=== PATIENT | female | born 1960 | race Caucasian/White ===

== ENCOUNTER 2022-09-27 13:10 | Emergency (ER) | payer OTHER, SELFPAY ==
[2022-09-27 13:11] VITALS: BP 129/91; PULSE 136; RESP 18; TEMP 36.4; O2SAT 95
--- NOTE | 2022-09-27 14:15 | EKG12_ITS ---
Test Reason : Blood Pressure : / mmHG Vent. Rate : 120 BPM Atrial Rate : 120 BPM P-R Int : 170 ms QRS Dur : 082 ms QT Int : 306 ms P-R-T Axes : 043 068 024 degrees QTc Int : 432 ms Sinus tachycardia Otherwise normal ECG Confirmed by TAHIR GILLILAND, LEE ([id number]), managing editor ASHLEY PULLIAM ([id number]) on 09/28/2022 9:24:29 AM Referred By: DALLAS Confirmed By:LEE HARO MD
[2022-09-27 14:58] LABS: Absolute Lymphocyte Count 0.84 X10^3/uL (0.83-4.51); Basophil# 0.01 X10^3/uL; Basophil% 0.3 % (0-1); Eosinophil# 0.02 X10^3/uL; Eosinophils% 0.6 % (0-5); Hematocrit 34.1 % (37-47); Hemoglobin 11.4 g/dL (12.0-15.0); Lymphocyte # 0.84 X10^3/ul (0.83-4.51); Lymphocyte % 26.8 % (19-41); Mean Corp Hgb Conc 33.4 g/dL (32-36); Mean Corpuscular Hgb 30.1 pg (27.0-32.0); Mean Platelet Vol. 9.3 fl (6.2-12.0); Monocyte# 0.24 X10^3/uL; Monocyte% 7.7 % (0-10); NRBC Flagged by Analyzer 0 % (0-5); Neutrophil # 1.99 X10^3/uL (2.7-7.7); Neutrophil % 63.6 % (47-70); POSITIVE MORPHOLOGY YES; Platelet Count 153 K/mm3 (150-450); RBC Distribution Width CV 17.2 % (11.6-14.6); Red Blood Count 3.79 M/mm3 (4.2-5.4); White Blood Count 3.1 K/mm3 (4.4-11.0)
[2022-09-27 14:59] LABS: Differential Indicated SCAN CRITERIA MET
[2022-09-27 15:03] LABS: D-Dimer Quantitative (DVT/PE) 0.85 FEU/ug/m (0.27-0.49)
[2022-09-27 15:07] LABS: Anion Gap 9 (5-15); BUN 11 mg/dL (7-18); Calcium,Total 9.6 mg/dL (8.5-10.1); Chloride 107 mmol/L (98-107); Creatinine, Serum 0.78 mg/dL (0.55-1.02); EST Glomerular Filtration Rate 79 mL/min (>60); Est Glom Filt Rate - Afr Amer 96 mL/min (>60); Glucose 117 mg/dL (74-106); Sodium Level 140 mmol/L (136-145); Troponin-I HS (w/2H Reflex) 5 pg/mL (3.0-54.0)
--- NOTE | 2022-09-27 15:08 | EX.ED.DYSGE1 ---
HPI History of Present Illness Chief Complaint: Palpitations Informant: patient and family Narrative Narrative: Sent to emergency department to rule out PE. Patient diagnosed breast cancer this past June currently going through chemo weekly followed by Dr. Joe. There is plan surgical intervention after 6 months of chemo, she followed up with surgery up at [facility] today reported heart rate was 140s. She states her smart watch did report that she was exercising more today when she was not. She does not feel palpitations. She does not feel lightheaded symptoms. She does not feel dyspnea. Patient denies recent vomiting or diarrhea she is tolerating oral fluids. PFSH PFSH Home Medications No Known/Unobtainable [No Known Home Medications] 04/26/16 [History Last Taken Unknown] Allergy/AdvReac Type Severity Reaction Status Date / Time No Known Allergies Allergy Verified 09/27/22 13:11 Social History Smoking Status: Never smoker ROS ROS ED Constitutional Constitutional ED: Denies chills, fever(s) or sweats Eyes Eyes: Denies change in vision ENT ENT ED: Denies dysphagia or sore throat Cardiovascular Cardiovascular: Denies chest pain, leg edema, palpitations or racing heartbeat Respiratory/Chest Respiratory/Chest: Denies cough, dyspnea or dyspnea on exertion Gastrointestinal Gastrointestinal: Denies abdominal pain, diarrhea, nausea or vomiting Genitourinary Genitourinary ED: Denies dysuria, hematuria or urinary frequency Musculoskeletal Musculoskeletal: Denies back pain, extremity pain or neck pain Integumentary Denies rash or wounds Neurologic Neurologic: Denies headache(s), paresthesias or weakness EXAM Physical Exam Const Vital Signs: 09/27/22 13:11 09/27/22 15:38 Temperature 97.6 F L Temperature Source Temporal Pulse Rate 136 H Respiratory Rate 18 Respiratory Effort Normal Blood Pressure 129/91 H Blood Pressure Mean 103 Pulse Ox 95 Oxygen Delivery Method Room Air Positive well nourished and well developed General Appearance ED: well developed and NAD HEENT Reports moist mucous membranes normocephalic and atraumatic Eyes PERRL, EOMs intact bilaterally and conjunctivae normal General Eye ED: Yes normal appearance of both eyes Neck no lymphadenopathy and supple General: Negative for tenderness Chest Wall Chest Narrative: Right upper chest Mediport. Chest: Negative for tenderness Resp normal respiratory effort and normal air movement Effort and Inspection: symmetric chest movement; Negative for respiratory distress Cardio regular rhythm and no murmurs Rate: tachycardic Peripheral Pulses: pulses 2+ throughout GI normal to inspection, nondistended, normoactive bowel sounds and non-tender Palpation: Negative for guarding or rebound tenderness present Back/Spine no CVA tenderness and no thoracic nor lumbar tenderness Extremity normal to inspection General Extremety ED: Negative for edema or tenderness General Extremity: Negative for edema Neuro oriented x3 and no sensory deficits noted Sensorium / Orientation: awake and alert Skin no rashes or lesions noted and no wounds MDM MDM MDM Narrative Medical decision making narrative: Interventions / MDM: Differential diagnosis: Cardiac dysrhythmia, tachycardia, pulmonary embolism Diagnosis considered but do not suspect: N/A My EKG interpretation: Sinus rate of 120, no ST or T wave changes. No S1Q3T3. Imaging independently reviewed and interpreted by myself: CTA chest negative for any PE interpreted by radiology External documents reviewed: N/A Test considered but not ordered:N/A ED course: Patient asymptomatic with tachycardia. Sinus tachycardia on the monitor. Labs initiated per protocol elevated dimer 0.85. Troponin negative. BUN [address] chest negative for PE. She was given IV fluids, Re-evaluation: stable heart rate improved to the 80s sinus rhythm on the monitor with fluids. She will increase oral fluids at home for hydration. She will follow-up with her doctors. All questions were answered. Disposition discussed with patient/family/significant other: Patient and family Case discussed with consulting clinician: N/A Lab Data Attestation: I reviewed the patient's lab results. Labs: Laboratory Results - last 24 hr 09/27/22 09/27/22 09/27/22 14:45 14:45 14:45 WBC 3.1 L RBC 3.79 L Hgb 11.4 L Hct 34.1 L MCV 90.0 MCH 30.1 MCHC 33.4 RDW Std Deviation 55.0 H RDW Coeff of Jonah 17.2 H Plt Count 153 MPV 9.3 Immature Gran % (Auto) 1.000 H Neut % (Auto) 63.6 Lymph % (Auto) 26.8 [place] % (Auto) 7.7 Eos % (Auto) 0.6 Baso % (Auto) 0.3 Absolute Neuts (auto) 2.0 Absolute Lymphs (auto) 0.84 Nucleated RBC % 0 Differential Comment SCANNED D-Dimer Quant (PE/DVT) 0.85 H* Sodium 140 Potassium 4.0 Chloride 107 Carbon Dioxide 24.0 Anion Gap 9 BUN 11 Creatinine 0.78 Est GFR (MDRD) Af Amer 96 Est GFR (MDRD) Non-Af 79 BUN/Creatinine Ratio 14.0 Glucose 117 H Calcium 9.6 Troponin I High Sens 5 Radiography Diagnostic Testing: Clinical Impression(s) from Imaging Studies Chest CTA 09/27/22 15:32 IMPRESSION: Normal CTA chest examination, without a demonstrated pulmonary embolism or arterial dissection. Electronically Signed: Tomás Robles MD at 15:54 EST , EKG Initial EKG: Attestation: I personally reviewed and interpreted this EKG as follows: Comments: Sinus rate of 120, no ST or T wave changes. No S1Q3T3. Discharge Plan Triage Chief Complaint: Palpitations ED Provider: Vasiliy Dee Dx/Rx/DC Orders Clinical Impression: Sinus tachycardia, Dehydration, History of breast cancer Instructions: Dehydration, Understanding Tachycardia Prescriptions: No Action No Known Home Medications Primary Care Provider: Sangeetha Marino Referrals: Sangeetha Marino MD [Primary Care Provider] - Activity Restrictions/Additional Instructions: CT chest negative for PE. Your heart rate improved with fluids. Continue oral fluids at home. Follow-up with your doctors. Disposition Disposition: Home, Self Care
[2022-09-27] MEDS: 0.9% Normal Saline 1,000 ML 1000 ML IV (15:28)
--- NOTE | 2022-09-27 15:32 | CT_ITS ---
STUDY: CTA CHEST REASON FOR EXAM: Female, 61 years old. Elevated dimer RADIATION DOSAGE (If Supplied By Facility): CTDIvol = ( 7.34 ) mGy, DLP = ( 376.97 ) mGycm TECHNIQUE: The examination was performed with the intravenous administration of IV 100mL Isovue-370. Post-processing of the angiographic images was performed, with multiplanar reformation and 3D reconstruction. Individualized dose optimization techniques were used for this CT. COMPARISON: None. FINDINGS: Normal enhancement of the main pulmonary artery and right and left pulmonary arteries. Normal enhancement of the bilateral peripheral pulmonary arteries. There is no demonstrated pulmonary embolism. Normal thoracic aorta and visualized great vessels. There is no demonstrated aortic dissection. Normal heart and pericardium. Normal mediastinum. Normal hilar regions. Normal visualized trachea and bronchi. The lungs are well expanded. Normal pulmonary parenchyma. Normal pleura. Normal chest wall structures. There are degenerative changes of thoracic spine. Normal visualized upper abdomen. CT/CTA Chest W/WO Contrast IMPRESSION: Normal CTA chest examination, without a demonstrated pulmonary embolism or arterial dissection. Electronically Signed: Tomás Robles MD at 15:54 EST ,
[2022-09-27 15:46] LABS: Differential Comment SCANNED
[2022-09-27 16:23] VITALS: PULSE 88; RESP 20; O2SAT 97
[2022-09-27 16:47] LABS: Reflex Troponin-HS? (from REC) Y
[2022-09-27 17:10] LABS: International Normalized Ratio 1.1; Partial Thromboplast Time 29.6 Seconds (24.1-36.2); Prothrombin Time (Protime)PT. 13.4 SECONDS (11.7-14.9)
== END 2022-09-27 17:03 | disposition home or self-care (01) ==
PROVIDERS: Emergency Provider Emergency Medicine; PCP Internal Medicine; Visit Provider Emergency Medicine
DX: R00.0 Tachycardia, unspecified (principal); C50.919 Malignant neoplasm of unspecified site of unspecified female breast; E86.0 Dehydration
CPT/HCPCS: 36591; 71275; 80048; 84484; 85025; 85379; 85610; 85730; 93005; 96360; 99285; J7030; Q9967; A4216

== ENCOUNTER 2022-09-30 10:26 | Emergency (ER) | payer OTHER, SELFPAY ==
[2022-09-30 10:27] VITALS: BP 86/67; PULSE 142; RESP 18; TEMP 38.1; O2SAT 96; BMI 29.4
--- NOTE | 2022-09-30 10:40 | EKG12_ITS ---
Test Reason : FEVER Blood Pressure : / mmHG Vent. Rate : 132 BPM Atrial Rate : 132 BPM P-R Int : 156 ms QRS Dur : 086 ms QT Int : 284 ms P-R-T Axes : 028 047 028 degrees QTc Int : 420 ms Sinus tachycardia Low voltage QRS (Limb Leads) Confirmed by ABRAHAM GILLILAND, RICHARD ([id number]), television news video editor ASHLEY PULLIAM ([id number]) on 10/04/2022 11:05:40 AM Referred By: Confirmed By:RICHARD ROSARIO MD
--- NOTE | 2022-09-30 10:45 | CT_ITS ---
STUDY: CT CHEST WITHOUT CONTRAST REASON FOR EXAM: Female, 62 years old. Cough sob fever chemotherapy br ca RADIATION DOSAGE (If Supplied By Facility): CTDIvol = ( 11.61 ) mGy, DLP = ( 394.39 ) mGycm TECHNIQUE: Transaxial imaging was performed without the administration of intravenous contrast material. Multiplanar coronal and sagittal images were reformatted. Individualized dose optimization techniques were used for this CT. COMPARISON: Comparison is made with prior study dated September 27, 2022. FINDINGS: CHEST A right-sided chel catheter seen with the tip in the superior vena cava. Small bilateral axillary lymph nodes. Surgical clips are seen in the left axillary region. The lungs are normal. There is no demonstrated pleural abnormality. Minimal thickening of the anterior pericardium. There are calcifications of the coronary arteries. Normal mediastinum. Normal hilar regions. Normal unenhanced pulmonary arteries. Normal aorta arch and descending thoracic aorta. Normal osseous structures. Small hiatal hernia. Borderline splenomegaly. CT/Chest without Contrast IMPRESSION: Mild anterior pericardial thickening. The lungs are clear. Electronically Signed: Tomás Robles MD at 11:31 EST ,
--- NOTE | 2022-09-30 10:46 | EDS_ITS ---
HPI History of Present Illness Chief Complaint: Fever Informant: patient and PCP (Dr. Joe, oncology) Onset/Context/Timing Onset: Today Narrative Narrative: Patient has triple negative breast cancer, she had her last chemotherapy yesterday, prior to that her ANC was 1200. Yesterday she developed a wet cough that has been nonproductive, mild dyspnea with exertion. She is not dyspneic at rest. She denies any chest discomfort or pleuritic thoracic pains. No leg pain or swelling or history of DVT or PE. She developed a fever today of 102.2. Given all of this and the fact that her neoadjuvant chemotherapy carries an uncommon side effect possibility of interstitial pneumonitis, she was sent here for further evaluation and for including cultures and CT imaging. [facility] Medical History Triple negative breast cancer Home Medications No Known/Unobtainable [No Known Home Medications] 04/26/16 [History Last Taken Unknown] Allergy/AdvReac Type Severity Reaction Status Date / Time No Known Allergies Allergy Verified 09/27/22 13:11 Social History Smoking Status: Never smoker ROS ROS ED Constitutional Constitutional ED: Reports chills, fever(s) and malaise Eyes Eyes: Denies change in vision or diplopia ENT ENT ED: Reports nasal congestion; Denies rhinorrhea or sore throat Cardiovascular Cardiovascular: Reports lightheadedness; Denies chest pain, palpitations or syncope Respiratory/Chest Respiratory/Chest: Reports cough and dyspnea on exertion; Denies sputum Gastrointestinal Gastrointestinal: Denies abdominal pain, diarrhea, nausea or vomiting Genitourinary Genitourinary ED: Denies dysuria or hematuria Musculoskeletal Musculoskeletal: Denies back pain or neck pain Integumentary Denies abscess or rash Neurologic Neurologic: Denies headache(s), paresthesias or weakness Psychiatric Psychiatric: Denies anxiety or suicidal thoughts EXAM Physical Exam Const Vital Signs: 09/30/22 10:27 09/30/22 10:59 09/30/22 11:54 Temperature 100.6 F H Temperature Source Temporal Pulse Rate 142 H 114 H Respiratory Rate 18 20 H Respiratory Effort Short of Breath Blood Pressure 86/67 L 104/50 L Blood Pressure Mean 73 68 Pulse Ox 96 94 Oxygen Delivery Method Room Air Room Air 09/30/22 12:00 09/30/22 13:43 09/30/22 13:43 Temperature 98.1 F 98.5 F 98.5 F Temperature Source Temporal Temporal Temporal Pulse Rate 114 H 116 H 116 H Respiratory Rate 20 H 20 H 20 H Respiratory Effort Blood Pressure 104/50 L 94/58 L 94/58 L Blood Pressure Mean 68 70 70 Pulse Ox 94 93 93 Oxygen Delivery Method Room Air Room Air Room Air 09/30/22 14:43 09/30/22 14:43 Temperature 98 F Temperature Source Temporal Pulse Rate 115 H 115 H Respiratory Rate 18 18 Respiratory Effort Blood Pressure 94/58 L 94/58 L Blood Pressure Mean 70 70 Pulse Ox 93 93 Oxygen Delivery Method Room Air Room Air Positive well nourished and well developed Constitutional Narrative: Well-appearing General Appearance ED: well developed and NAD HEENT Reports moist mucous membranes normocephalic and atraumatic Eyes PERRL and EOMs intact bilaterally Neck full ROM and supple Resp normal respiratory effort and clear to auscultation bilaterally Resp Narrative: Occasional wet sounding cough nonproductive. Conversive in full sentences and well-appearing. Cardio regular rate, regular rhythm and no murmurs Rate: tachycardic GI non-tender and non-distended Auscultation: normoactive bowel sounds Palpation: soft Back/Spine no CVA tenderness General Back: other FROM Extremity normal to inspection General Extremety ED: Negative for edema, pulses abnormal or tenderness General Extremity: Negative for edema or pulses abnormal Neuro oriented x3, CN's II-XII intact bilaterally and no sensory deficits noted Sensorium / Orientation: awake and alert Motor Exam: strength 5/5 throughout Skin no rashes or lesions noted and no wounds MDM MDM MDM Narrative Medical decision making narrative: Patient underwent septic work-up. She is leukopenic, like she was before, but she is not neutropenic. Her ANC is actually a little higher now, 2000. She is pancultured. We did a chest CT, given oncology's recommendation and the differential including interstitial pneumonitis and pneumonia. The CT is negative for any of that. The patient was given fluids we had her fever down with Tylenol, and she was feeling well. I discussed with Dr. Joe again, we did COVID and influenza swabs and they were negative he advised doing a respiratory panel as well. That is sent, will give her some more fluids in the meantime because her pressure was on the low side and she had some mild elevation of her creatinine, her pressure is better, and she is ready to go home. The respiratory panel was good to take another 1.5 hours, so we will review the results and if negative for any viruses, we will prescribe her broad-spectrum Levaquin to cover atypicals. This swab returned positive for metapneumovirus, known respiratory virus, otherwise negative. Given that, I do not think she needs to be put on antibiotics. Staff called the patient to discuss and I had them fax this result to her oncologist office. Lab Data Attestation: I reviewed the patient's lab results. Labs: Laboratory Results - last 24 hr 09/30/22 09/30/22 09/30/22 10:20 11:00 11:00 WBC 2.5 L RBC 2.97 L Hgb 8.9 L Hct 26.9 L MCV 90.6 MCH 30.0 MCHC 33.1 RDW Std Deviation 57.4 H RDW Coeff of Jonah 17.5 H Plt Count 103 L MPV 9.8 Immature Gran % (Auto) 0.800 Neut % (Auto) 82.6 H Lymph % (Auto) 7.3 L [place] % (Auto) 8.9 Eos % (Auto) 0.0 Baso % (Auto) 0.4 Absolute Neuts (auto) 2.0 Absolute Lymphs (auto) 0.18 L Nucleated RBC % 0 Differential Comment SCANNED Diff Path Review November foll PT 14.5 INR 1.2 APTT 34.2 Sodium Potassium Chloride Carbon Dioxide Anion Gap BUN Creatinine Estim Creat Clear Calc Est GFR (MDRD) Af Amer Est GFR (MDRD) Non-Af BUN/Creatinine Ratio Glucose Lactic Acid Calcium Total Bilirubin AST ALT Alkaline Phosphatase Total Protein Albumin Globulin Albumin/Globulin Ratio Urine Color Yellow Urine Clarity Clear Urine pH 5.0 Ur Specific [place] 1.015 Urine Protein 15 H Urine Glucose (UA) Normal Urine Ketones Negative Urine Occult Blood 150 H Urine Nitrite Negative Urine Bilirubin Negative Urine Urobilinogen Normal Ur Leukocyte Esterase 25 H Urine RBC 0-5 SEEN Urine WBC 0-5 SEEN Ur Squamous Epith Cells 0-5 SEEN Urine Bacteria RARE Urine Mucus 0 SEEN 09/30/22 09/30/22 11:00 11:00 WBC RBC Hgb Hct MCV MCH MCHC RDW Std Deviation RDW Coeff of Jonah Plt Count MPV Immature Gran % (Auto) Neut % (Auto) Lymph % (Auto) [place] % (Auto) Eos % (Auto) Baso % (Auto) Absolute Neuts (auto) Absolute Lymphs (auto) Nucleated RBC % Differential Comment Diff Path Review PT INR APTT Sodium 134 L Potassium 3.6 Chloride 102 Carbon Dioxide 24.0 Anion Gap 8 BUN 20 H Creatinine 1.14 H Estim Creat Clear Calc 43.62 Est GFR (MDRD) Af Amer 62 Est GFR (MDRD) Non-Af 51 L BUN/Creatinine Ratio 17.5 Glucose 140 H Lactic Acid 1.9 Calcium 8.2 L Total Bilirubin 1.40 H AST 22 ALT 21 Alkaline Phosphatase 56 Total Protein 6.4 Albumin 3.2 Globulin 3.2 Albumin/Globulin Ratio 1.0 Urine Color Urine Clarity Urine pH Ur Specific [place] Urine Protein Urine Glucose (UA) Urine Ketones Urine Occult Blood Urine Nitrite Urine Bilirubin Urine Urobilinogen Ur Leukocyte Esterase Urine RBC Urine WBC Ur Squamous Epith Cells Urine Bacteria Urine Mucus Radiography Diagnostic Testing: Clinical Impression(s) from Imaging Studies Chest CT 09/30/22 10:45 IMPRESSION: Mild anterior pericardial thickening. The lungs are clear. Electronically Signed: Tomás Robles MD at 11:31 EST , Rhythm Strip Rhythm Strip: Sinus Tach Rate: 125 Ectopy: None EKG Initial EKG: Attestation: I personally reviewed and interpreted this EKG as follows: Interpretation: No Acute Injury Pattern and Sinus Tachycardia Discharge Plan Triage Chief Complaint: Fever ED Provider: Fred Chung Dx/Rx/DC Orders Clinical Impression: Viral URI with cough, Pancytopenia, History of breast cancer, Acquired immunocompromised state Instructions: ED FUO Adult Prescriptions: No Action No Known Home Medications Primary Care Provider: Sangeetha Marino Referrals: Sangeetha Marino MD [Primary Care Provider] - Manuel Joe DO [Med Staff - Active Staff] - (call for follow up instructions) Activity Restrictions/Additional Instructions: Drink plenty fluids. Tylenol as needed for fevers. Feel free to return to the ER for any other acute issues. Disposition Disposition: Home, Self Care Discharge Date/Time: 09/30/22 16:01
[2022-09-30 10:54] LABS: Mucous, Urine 0 SEEN /hpf (<or=2+)
[2022-09-30 10:57] LABS: Color, Urine Yellow (Yellow); Glucose, Dipstick Normal (Normal); Ketone-Dipstick Negative (Negative); Leukocyte Esterase-Dipstick 25 /ul (Negative); Nitrite-Dipstick Negative (Negative); Occult Blood-Urine 150 /ul (Negative); Protein-Dipstick 15 mg/dl (Negative); Specific Gravity, Urine 1.015 (1.002-1.030); Urine Bilirubin Dipstick Negative (Negative); Urine Clarity Clear (Clear); Urine Urobilinogen Normal (Normal)
[2022-09-30] MEDS: 0.9% Normal Saline 1,000 ML 999 ML IV ×2 (10:58→13:49)
[2022-09-30] MEDS: Acetaminophen 500 MG Tablet 1000 MG PO (10:58)
[2022-09-30 11:06] LABS: Bacteria RARE /hpf (None Seen); Red Blood Cells-Urine 0-5 SEEN /hpf (0-5); Squamous Epithelial Cells - UA 0-5 SEEN /hpf (5-10); White Blood Cells 0-5 SEEN /hpf (0-5)
[2022-09-30 11:16] LABS: Absolute Lymphocyte Count 0.18 X10^3/uL (0.83-4.51); Basophil# 0.01 X10^3/uL; Basophil% 0.4 % (0-1); Differential Indicated SCAN CRITERIA MET; Hematocrit 26.9 % (37-47); Hemoglobin 8.9 g/dL (12.0-15.0); Lymphocyte # 0.18 X10^3/ul (0.83-4.51); Lymphocyte % 7.3 % (19-41); Mean Corp Hgb Conc 33.1 g/dL (32-36); Mean Corpuscular Volume 90.6 fL (81-99); Mean Platelet Vol. 9.8 fl (6.2-12.0); Monocyte# 0.22 X10^3/uL; Monocyte% 8.9 % (0-10); NRBC Flagged by Analyzer 0 % (0-5); Neutrophil # 2.04 X10^3/uL (2.7-7.7); Neutrophil % 82.6 % (47-70); POSITIVE DIFFERENTIAL YES; Platelet Count 103 K/mm3 (150-450); RBC Distribution Width CV 17.5 % (11.6-14.6); RBC Distribution Width SD 57.4 fl (35.1-43.9); Red Blood Count 2.97 M/mm3 (4.2-5.4); White Blood Count 2.5 K/mm3 (4.4-11.0)
[2022-09-30 11:26] LABS: International Normalized Ratio 1.2; Prothrombin Time (Protime)PT. 14.5 SECONDS (11.7-14.9)
[2022-09-30 11:27] LABS: Partial Thromboplast Time 34.2 Seconds (24.1-36.2)
[2022-09-30 11:31] LABS: Differential Comment SCANNED
[2022-09-30 11:35] LABS: AST(SGOT) 22 U/L (15-37); Alanine Aminotransfer ALT/SGPT 21 U/L (13-56); Albumin, Serum 3.2 g/dL (3.2-5.0); Alkaline Phosphatase 56 U/L (45-117); Anion Gap 8 (5-15); BUN 20 mg/dL (7-18); BUN/Creat Ratio 17.5 RATIO (10-20); Calcium,Total 8.2 mg/dL (8.5-10.1); Chloride 102 mmol/L (98-107); Creatinine, Serum 1.14 mg/dL (0.55-1.02); EST Glomerular Filtration Rate 51 mL/min (>60); Est Glom Filt Rate - Afr Amer 62 mL/min (>60); Estimated Creatinine Clearance 43.62 ml/min; Globulin 3.2 g/dL (2.2-4.2); Glucose 140 mg/dL (74-106); Potassium 3.6 mmol/L (3.5-5.1); Protein, Total 6.4 g/dL (6.4-8.2); Sodium Level 134 mmol/L (136-145)
[2022-09-30 11:37] LABS: Lactic Acid 1.9 mmol/L (0.4-1.9)
[2022-09-30 11:54] VITALS: BP 104/50; PULSE 114; RESP 20; O2SAT 94
[2022-09-30 12:00] VITALS: BP 104/50; PULSE 114; RESP 20; TEMP 36.7; O2SAT 94
[2022-09-30 13:43] VITALS: BP 94/58; PULSE 116; RESP 20; TEMP 36.9; O2SAT 93
[2022-09-30 14:43] VITALS: BP 94/58; PULSE 115; RESP 18; TEMP 36.6; O2SAT 93
--- NOTE | 2022-09-30 17:06 | ED.RN ---
THIS RN SPOKE TO PT REGARDING POSITIVE VIRUS ON RESP PANEL. GIVEN INSTRUCTIONS FOR SUPPORTIVE CARE AND PER DR. MANRIQUEZ DIRECTION RESULTS WERE FAXED TO DR. ACUÑA'S OFFICE. NO FURTHER QUESTION FROM PT SHE VERBALIZED UNDERSTANDING.
[2022-10-01 13:21] LABS: Pathologist Review Reviewed
== END 2022-09-30 16:01 | disposition home or self-care (01) ==
PROVIDERS: Emergency Provider Emergency Medicine; PCP Internal Medicine; Visit Provider Emergency Medicine
DX: J06.9 Acute upper respiratory infection, unspecified (principal); D61.818 Other pancytopenia; Z51.81 Encounter for therapeutic drug level monitoring; Z85.3 Personal history of malignant neoplasm of breast
CPT/HCPCS: 36591; 71250; 80053; 81001; 83605; 85025; 85610; 85730; 87040; 87086; 87088; 87428; 87633; 93005; 96360; 96361; 99285; J7030; A4216

== ENCOUNTER 2023-06-26 07:55 | Emergency (ER) | payer OTHER, SELFPAY ==
[2023-06-26 07:56] VITALS: BP 118/75; PULSE 114; RESP 16; TEMP 36.2; O2SAT 96; BMI 29.0
--- NOTE | 2023-06-26 08:21 | EX.ED.GENINJ ---
HPI History of Present Illness Chief Complaint: Fall Narrative Narrative: 82-year-old female presenting with left wrist pain and rib pain. Patient states she had mechanical fall yesterday in the afternoon. Patient states she fell with her outstretched hand on the left. She states that she landed on her left ribs as well. She took Tylenol initially and the pain was less. Overnight her pain increased. Patient did take ibuprofen last night. Denies any shortness of breath associated with the rib pain. She has a pain in the left lateral wrist. She is able to range this fairly well. Mild bruising and swelling noted at the volar aspect. No numbness or tingling. [facility] Medical History Triple negative breast cancer Home Medications No Known/Unobtainable [No Known Home Medications] 04/26/16 [History Last Taken Unknown] Allergy/AdvReac Type Severity Reaction Status Date / Time No Known Allergies Allergy Verified 09/27/22 13:11 Social History Smoking Status: Never smoker ROS ROS ED Constitutional Constitutional ED: Denies chills, fever(s) or sweats Eyes Eyes: Denies blurry vision or change in vision ENT ENT ED: Denies ear pain or sore throat Cardiovascular Cardiovascular: Denies chest pain, palpitations or racing heartbeat Respiratory/Chest Respiratory/Chest: Reports other Details: Left rib pain ; Denies cough, dyspnea or sputum Gastrointestinal Gastrointestinal: Denies abdominal pain, constipation, diarrhea, nausea or vomiting Genitourinary Genitourinary ED: Denies dysuria, hematuria or urinary frequency Musculoskeletal Musculoskeletal: Reports other Details: Left wrist pain ; Denies arthralgias, myalgias or neck pain Integumentary Denies abscess, Abrasions or rash Neurologic Neurologic: Denies headache(s), paresthesias or weakness Psychiatric Psychiatric: Denies anxiety, depression, suicidal ideation or suicidal thoughts Endocrine Endocrinology: Denies polydipsia or polyuria EXAM Physical Exam Const Vital Signs: 06/26/23 07:56 06/26/23 08:13 Temperature 97.1 F L Temperature Source Temporal Pulse Rate 114 H Respiratory Rate 16 Respiratory Effort Normal Non-Labored Respiratory Depth Normal Respiratory Pattern Normal Blood Pressure 118/75 Blood Pressure Mean 89 Pulse Ox 96 Oxygen Delivery Method Room Air Positive well nourished General Appearance ED: NAD HEENT atraumatic Eyes PERRL and EOMs intact bilaterally Chest Wall Chest Narrative: Tenderness palpation of left anterior ribs in the mid clavicular line. No obvious deformity, crepitance, bruising. Equal symmetric breath sounds or chest wall rise. Resp normal respiratory effort and clear to auscultation bilaterally Cardio regular rhythm GI normal to inspection, nondistended, normoactive bowel sounds Extremity Extremity Narrative: Tenderness to palpation over the lateral aspect of the volar left wrist. No obvious deformities but there is some edema and bruising noted. Patient able to flex, extend, circumduct the left wrist without difficulty. Left hand neurovascular intact with cap refill all 5 fingers Neuro oriented x3 and CN's II-XII intact bilaterally Sensorium / Orientation: alert Motor Exam: strength 5/5 throughout Psych mental status grossly normal and thought process normal Skin no rashes or lesions noted and no wounds MDM MDM MDM Narrative Medical decision making narrative: Patient presenting with left wrist pain and left rib pain. On examination she has equal symmetric breath sounds and chest wall rise. No evidence of any trauma to the ribs. We will obtain a left rib series. Lidoderm patch will be placed and ibuprofen given. Patient will also have a left wrist x-ray given the pain in the left wrist. X-rays of the left ribs show no acute fracture, pneumothorax, acute process per my interpretation. Left wrist x-ray shows no acute fracture or subluxation on my interpretation. Radiology interprets of both these and agrees. Patient to continue ibuprofen and I will prescribe her with some Lidoderm patches. He is put in a wrist splint comfort. Impression: 1. Mechanical fall 2. Right to left wrist sprain 3. Left rib contusion Radiography Diagnostic Testing: Clinical Impression(s) from Imaging Studies Ribs w/Chest X-Ray 06/26/23 08:22 IMPRESSION: RIBS: Normal x-ray examination of the ribs. CHEST: Normal x-ray examination of the chest. Electronically Signed: Humphrey Fine MD at 8:41 EST Reading Location ID and State: [facility] / [place] , Service support , Wrist X-Ray 06/26/23 08:22 IMPRESSION: Normal x-ray examination of the wrist. Electronically Signed: Humphrey Fine MD at 8:40 EST , Discharge Plan Triage Chief Complaint: Fall ED Provider: Bebo Justice Dx/Rx/DC Orders Instructions: ED Bruise, Rib, ED Wrist Sprain, ED Fall Prevention Prescriptions: No Action No Known Home Medications Primary Care Provider: Sangeetha Marino Referrals: Sangeetha Marino MD [Primary Care Provider] - Disposition Disposition: Home, Self Care
--- NOTE | 2023-06-26 08:22 | RAD_ITS ---
STUDY: X-RAY - LEFT WRIST REASON FOR EXAM: Female, 62 years old. pain TECHNIQUE: 3 view(s) of the wrist were obtained. COMPARISON: None. FINDINGS: Normal visualized distal radius and ulna. Normal radiocarpal articulation. Normal distal radioulnar articulation. Normal carpal bones. Normal carpal articulations. Normal carpometacarpal articulation of the thumb. Normal second through fifth carpometacarpal articulations. Normal visualized metacarpal bones. The soft tissue structures are unremarkable. RAD/Wrist min 3 Views IMPRESSION: Normal x-ray examination of the wrist. Electronically Signed: Humphrey Fine MD at 8:40 EST ,
--- NOTE | 2023-06-26 08:22 | RAD_ITS ---
STUDY: X-RAY - UNILATERAL RIBS ( LEFT ) WITH CHEST REASON FOR EXAM: Female, 62 years old. Pain TECHNIQUE - RIBS: 2 view(s) of the ribs. TECHNIQUE - CHEST: Single PA view of the chest. COMPARISON: 09/30/2022 FINDINGS - RIBS: Normal visualized ribs without a demonstrated fracture. FINDINGS - CHEST: Stable appearance of a right subclavian port. The lungs are clear and expanded. There is no demonstrated pleural abnormality. Normal size heart. Normal mediastinum and kelly. Normal visualized pulmonary arteries. Normal visualized aortic arch and descending thoracic aorta. Normal visualized thoracic spine. Normal visualized ribs, clavicles, and shoulders. There is no demonstrated abnormality of the visualized soft tissue structures of the upper abdomen. RAD/Ribs Uni Min 3V w/PA Chest IMPRESSION: RIBS: Normal x-ray examination of the ribs. CHEST: Normal x-ray examination of the chest. Electronically Signed: Humphrey Fine MD at 8:41 EST ,
[2023-06-26] MEDS: Lidocaine 5% Patch 1 PATCH TOPICAL (08:57)
[2023-06-26] MEDS: Ibuprofen 600 MG Tablet PO (08:57)
== END 2023-06-26 09:21 | disposition home or self-care (01) ==
LOC: ED 08:49
PROVIDERS: Emergency Provider Student in an Organized Health Care Education/Training Program; PCP Internal Medicine; Visit Provider Student in an Organized Health Care Education/Training Program
DX: S20.212A Contusion of left front wall of thorax, initial encounter (principal); S63.501A Unspecified sprain of right wrist, initial encounter; S63.502A Unspecified sprain of left wrist, initial encounter; W19.XXXA Unspecified fall, initial encounter
CPT/HCPCS: 71101; 73110; 99282

== ENCOUNTER 2024-03-11 15:18 | Emergency (ER) | payer OTHER, SELFPAY ==
[2024-03-11 15:19] VITALS: BP 154/105; PULSE 120; RESP 20; TEMP 36.1; O2SAT 97; BMI 29.5
--- NOTE | 2024-03-11 15:47 | EX.ED.DYSGE1 ---
HPI <FANI Luciano - Last Filed: 03/11/24 16:13> History of Present Illness Chief Complaint: Other, Pain/Inj Narrative Narrative: Patient is a 63-year-old female with history of breast cancer on the left side, receiving a lumpectomy, radiation chemotherapy. She has been cancer free for 1 year. Presenting to the [facility] part with 2 days of redness, erythema that tracks down her left upper extremity. Patient denies any chest pain or shortness of breath. She denies any fever or chills. PFSH <FANI Luciano - Last Filed: 03/11/24 16:13> [facility] Medical History Triple negative breast cancer Home Medications ?Medication ?Instructions ?Recorded ?Last Taken ?Type lidocaine 5 % topical patch 1 patch topical DAILY #15 ea 06/26/23 Unknown Rx (Lidoderm) apixaban 5 mg (74 tabs) tablets in See Rx Instructions PO .COMPLEX 03/11/24 Unknown Rx a dose pack (Eliquis DVT-PE Treat #74 tabs 30D Start) Allergy/AdvReac Type Severity Reaction Status Date / Time No Known Allergies Allergy Verified 09/27/22 13:11 Social History Smoking Status: Never smoker ROS <FANI Luciano - Last Filed: 03/11/24 16:13> ROS ED ROS Narrative Constitutional: Negative for fever, chills, weight loss, weakness Eyes: Negative for vision loss, vision change, double vision ENT: Negative for any sore throat, ear pain, congestion Cardiovascular: Negative for any chest pain, tightness, palpitations Respiratory: Negative for any cough, sputum production, hemoptysis, dyspnea, dyspnea on exertion, orthopnea Gastrointestinal: Negative for any abdominal pain, nausea, vomiting, diarrhea, constipation, blood in stool, blood in vomit : Negative for any urinary frequency, dysuria, retention, blood in urine Muscle skeletal: Negative for any neck pain, back pain. Positive for left upper arm pain, redness to the left upper arm Neurological: Negative for any headache, syncope, dizziness Skin: Negative for any rashes, itching, abrasions, lacerations Psychiatric: Negative for any depression, anxiety, stress, suicidal ideation, homicidal ideation Hematologic: Negative for any excessive bruising, easy bleeding EXAM <FANI Luciano - Last Filed: 03/11/24 16:13> Physical Exam Narrative Exam Narrative: Vital signs reviewed. HEET: Head normocephalic atraumatic, TMs clear bilaterally. Posterior pharynx is clear, moist mucous membranes. Nares clear bilaterally. Neck: Supple with no lymphadenopathy or tenderness. No signs of meningismus. Cardiac: Regular rate and rhythm no murmurs gallops or rubs, equal peripheral pulses bilaterally. Respiratory: Lungs clear to auscultation bilaterally. No chest tenderness. Abdomen: Soft, nontender, nondistended. No abdominal bruit or pulsatile masses. No hepatosplenomegaly Extremities: Patient has redness that goes to the left axilla down to the left bicep to the top of the left forearm. There is some warmth. +2 pedal pulse. Patient is no chest pain or shortness of breath. Neuro: Cranial nerves II through XII intact, no focal neurological deficits. Skin: Clean dry and intact with no rash, purpura, petechiae, vesicles or pustules. Backs/flank: No CVA tenderness, no midline spinal tenderness, no deformity. Psych: Normal mood and affect. No SI, HI or acute psychosis. Const Vital Signs: 03/11/24 15:19 03/11/24 15:25 03/11/24 16:33 Temperature 97 F L 98.0 F Temperature Source Temporal Pulse Rate 120 H 82 Respiratory Rate 20 H 16 Respiratory Effort Normal Respiratory Pattern Normal Blood Pressure 154/105 H 132/76 H Blood Pressure Mean 121 94 Pulse Ox 97 99 Oxygen Delivery Method Room Air <Dr. Juanito Castellanos MD - Last Filed: 03/11/24 17:44> Physical Exam Const Vital Signs: 03/11/24 15:19 03/11/24 15:25 03/11/24 16:33 Temperature 97 F L 98.0 F Temperature Source Temporal Pulse Rate 120 H 82 Respiratory Rate 20 H 16 Respiratory Effort Normal Respiratory Pattern Normal Blood Pressure 154/105 H 132/76 H Blood Pressure Mean 121 94 Pulse Ox 97 99 Oxygen Delivery Method Room Air MDM <FANI Luciano - Last Filed: 03/11/24 16:13> MDM Treatment and Re-Evaluation :: Differential diagnosis includes however is not limited to: DVT, cellulitis, lymphadenopathy, lymphangitis Patient appears to be in no obvious respiratory distress, vital signs are stable, presenting to the emergency department with left arm redness, swelling. Upon physical examination, Madeline was able to feel some sort of a superficial clot. However patient does have no chest pain or shortness of breath. Patient will be ambulated around the department with pulse ox, patient be started on Eliquis, I will write the patient for left upper arm venous duplex tomorrow morning. She is instructed to follow-up. She will be given a prescription for Eliquis. Patient is happy with the plan of care, instructed return for any worsening symptoms. Patient is stable Patient is able to ambulate without any drop in her pulse oxygenation, heart rate was stable. Patient stable for discharge. <Dr. Juanito Castellanos MD - Last Filed: 03/11/24 17:44> [facility] Narrative Medical decision making narrative: I have personally performed a face to face assessment of the patient and have reviewed the DEBBIE Note. I performed a substantive portion of the visit including all aspects of the following. My parks findings include: History is remarkable for breast cancer left under the care of Dr. Manuel Joe. She initially received chemo followed by surgery and then 5 weeks of radiation. She denies history of PE or DVT. She states she had multiple lymph nodes removed left axilla. She denies fever, chills night sweats. She denies chest discomfort of any type including pleuritic. She denies dyspnea or dyspnea on exertion. She states the pain initially started in the left axilla and noted redness and swelling of her arm. She now has swelling of her entire left upper extremity Exam is patient has a swollen left upper extremity with palpable cord antecubital fossa and distal of the antecubital fossa. There is redness in the distribution of the deep venous system involving the right arm. There is a well-healed surgical scar left axilla. There is no axillary lymphadenopathy. There are no palpable pulsatile mass noted. Axillary, median, radial and ulnar function intact. Medical Decision Making patient in my opinion has a DVT. Patient was treated with Eliquis. Venous duplex study was obtained to confirm diagnosis. She states she has an appointment to see the oncologist nurse practitioner tomorrow. Other additions or changes: Eliquis in department and Eliquis prescription. Venous duplex study in the morning to confirm clinical diagnosis of DVT left upper extremity Discharge Plan Triage Chief Complaint: Other, Pain/Inj Other Complaint: Upper Extremity Injury ED Midlevel Provider: Manuel Marroquin ED Provider: Juanito Castellanos Dx/Rx/DC Orders Clinical Impression: DVT (deep venous thrombosis), Sinus tachycardia, Elevated blood-pressure reading without diagnosis of hypertension, History of cancer of left breast Instructions: DVT Complications, ED Deep Vein Thrombosis (DVT) Prescriptions: New Eliquis DVT-PE Treat 30D Start 5 mg (74 tabs) tablets,dose pack See Rx Instructions .ROUTE .COMPLEX Qty: 74 0RF Rx Instructions: orally per package directions No Action lidocaine [Lidoderm] 5 % adhesive patch,medicated 1 patch topical DAILY Qty: 15 0RF Rx Instructions: leave on most painful area for up to 12 hrs Other Ambulatory Orders: Venous Duplex US, Unilateral (Stat) Facility: [facility] [place] - Location: [facility] Ordered By: Manuel Marroquin Primary Care Provider: Sangeetha Marino Referrals: Sangeetha Marino MD [Primary Care Provider] - Activity Restrictions/Additional Instructions: He will follow-up tomorrow to receive a left upper extremity venous duplex. You have a prescription for 1 month of Eliquis for blood thinner. Print Language: Malian Disposition Disposition: Home, Self Care Discharge Date/Time: 03/11/24 16:34
[2024-03-11] MEDS: APIXABAN 5 MG TABLET 10 MG PO (15:59)
[2024-03-11 16:03] VITALS: O2SAT 95
[2024-03-11 16:33] VITALS: BP 132/76; PULSE 82; RESP 16; TEMP 36.7; O2SAT 99
== END 2024-03-11 16:34 | disposition home or self-care (01) ==
PROVIDERS: Emergency Provider Emergency Medicine; PCP Internal Medicine; Visit Provider Emergency Medicine
DX: I82.622 Acute embolism and thrombosis of deep veins of left upper extremity (principal); R00.0 Tachycardia, unspecified; R03.0 Elevated blood-pressure reading, without diagnosis of hypertension; Z85.3 Personal history of malignant neoplasm of breast; Z79.01 Long term (current) use of anticoagulants
CPT/HCPCS: 99283

== ENCOUNTER → 2024-03-12 | Outpatient (CLI) | payer OTHER, SELFPAY ==
--- NOTE | 2024-03-12 14:08 | VDUE_ITS ---
Reason For Study: LUE Swelling Left Proximal Left jugular vein is spontaneous, widely patent, phasic, with no intraluminal echogenicity noted. Left subclavian vein is spontaneous, widely patent, phasic, with no intraluminal echogenicity noted. Left Arm Left axillary vein is spontaneous, patent, phasic, competent, compressible and demonstrates augmentation. Left brachial vein is compressible. Left cephalic vein is compressible. Left basilic vein is compressible. Left Lower Arm Left radial vein is compressible. Left ulnar vein is compressible. Patient Safety LUE Venous Duplex w/ B-Mode, Color and Pulsed Wave Doppler. Preliminary Results faxed to [facility] / Beatrice Fofana NP. VL/Venous Duplex US, Unilateral Interpretation Summary Deep veins of the left upper extremity are patent and compressible segmentally. There is no evidence of deep vein thrombosis. Superficial veins of the left upper extremity are patent and compressible segme ntally. There is no evidence of superficial vein thrombosis. Ordering Physician: Manuel Marroquin Referring Physician: Sangeetha Marino / Beatrice Fofana Performed By: Yassine Coats RVT ???
== END | disposition home or self-care (01) ==
LOC: CVS 14:05
PROVIDERS: PCP Internal Medicine; Visit Provider Nurse Practitioner
DX: M79.89 Other specified soft tissue disorders (principal)
CPT/HCPCS: 93971